=== PATIENT | female | born 1975 | race Caucasian/White ===

== ENCOUNTER 2017-12-02 09:10 | Inpatient (IN) | payer OTHER ==
[~2017-12-02] VITALS: Ht 170.2 cm; Wt 99.8 kg
[2017-12-15] MEDS ORDERED: ATORVASTATIN CA40 MG PO (16:42)
[2017-12-15] MEDS ORDERED: METROPOLOL PO (16:43)
[2017-12-15] MEDS ORDERED: IBRERSARTAN PO (16:44)
[2017-12-20] MEDS ORDERED: IRBESARTAN150 MG PO (11:31)
[2017-12-20] MEDS ORDERED: TOPROL XL25 M1 PO (11:32)
[2017-12-23] MEDS ORDERED: PERCOCET 5-3251 EACH PO (16:52)
[2017-12-23] MEDS ORDERED: OMEPRAZOLE20 M1 PO (16:52)
[2017-12-23] MEDS ORDERED: INTESTINEX680 M1 PO (16:52)
== END 2017-12-23 17:16 | disposition home or self-care (01) | DRG 331 ==
LOC: EDUNIT# 12-15 12:00 → SURG 12-20 06:52 → O/R 12-20 06:52 → SURH 12-20 07:00 → SURG 12-20 13:28
PROVIDERS: Surgery
PROC: 07TC4ZZ Resection of Pelvis Lymphatic, Percutaneous Endoscopic Approach (ICD-10-PCS; 2017-12-20)
PROC: 0DTF4ZZ Resection of Right Large Intestine, Percutaneous Endoscopic Approach (ICD-10-PCS; principal; 2017-12-20 07:00)
DX: C18.3 Malignant neoplasm of hepatic flexure (principal); R59.0 Localized enlarged lymph nodes; E66.01 Morbid (severe) obesity due to excess calories

== ENCOUNTER 2017-12-10 08:35 | Outpatient (CLI) | payer OTHER | END 2017-12-10 08:54 | disposition home or self-care (01) | LOC: LAB 08:35 | DX: C18.2 Malignant neoplasm of ascending colon (principal); R59.0 Localized enlarged lymph nodes ==

== ENCOUNTER 2017-12-19 06:34 | Day surgery (SDC) | payer OTHER ==
[~2017-12-19 06:34] MED LIST: ATORVASTATIN CA40 MG PO; IBRERSARTAN PO; METROPOLOL PO
[2017-12-20] MEDS ORDERED: IRBESARTAN150 MG PO (11:31)
[2017-12-20] MEDS ORDERED: TOPROL XL25 M1 PO (11:32)
== END 2017-12-19 11:40 | disposition home or self-care (01) ==
LOC: AMB-ENDOS 06:34
DX: C18.3 Malignant neoplasm of hepatic flexure (principal)

== ENCOUNTER → 2018-01-20 | Day surgery (SDC) | payer OTHER ==
[~2018-01-20] MED LIST changes: +INTESTINEX680 M1 PO; +IRBESARTAN150 MG PO; +OMEPRAZOLE20 M1 PO; +PERCOCET 5-3251 EACH PO; +TOPROL XL25 M1 PO
== END | disposition home or self-care (01) ==
LOC: ADM 01-18 11:45 → CIR.AMB 05:35
DX: C18.3 Malignant neoplasm of hepatic flexure (principal); E66.01 Morbid (severe) obesity due to excess calories
CPT/HCPCS: 36561; C1751

== ENCOUNTER 2018-12-18 06:37 | Day surgery (SDC) | payer OTHER | END 2018-12-18 13:10 | disposition home or self-care (01) | LOC: AMB-ENDOS 06:37 | DX: K64.0 First degree hemorrhoids (principal) ==

== ENCOUNTER 2019-07-30 10:30 | Inpatient (IN) | payer OTHER ==
[~2019-07-30] VITALS: Ht 165.1 cm; Wt 113.4 kg
[2019-07-30] MEDS ORDERED: CANDESARTAN-HC1 EACH PO (13:59)
[2019-07-30] MEDS ORDERED: ZANTAC PO (14:00)
[2019-07-30] MEDS ORDERED: BISOPROLOL PO (14:07)
[2019-08-02] MEDS ORDERED: BISOPROLOL FUMA10 MG PO (13:09)
[2019-08-02] MEDS ORDERED: RANITIDINE HCL300 MG PO (13:10)
== END 2019-08-04 16:52 | disposition home or self-care (01) | DRG 743 ==
LOC: O/R 08-02 06:00 → OB/GYN 08-02 06:00 → O/R 08-02 10:30 → SURH 08-02 18:10 → OB/GYN 08-02 18:25
PROVIDERS: ADMIT Obstetrics & Gynecology Gynecologic Oncology; ATTEND Obstetrics & Gynecology Gynecologic Oncology
PROC: 0UB94ZZ Excision of Uterus, Percutaneous Endoscopic Approach (ICD-10-PCS; principal; 2019-08-02 19:15)
DX: D25.9 Leiomyoma of uterus, unspecified (principal); E66.01 Morbid (severe) obesity due to excess calories

== ENCOUNTER 2020-06-06 07:15 | Day surgery (SDC) | payer OTHER ==
[~2020-06-06 07:15] MED LIST changes: +BISOPROLOL FUMA10 MG PO; +BISOPROLOL PO; +CANDESARTAN-HC1 EACH PO; +RANITIDINE HCL300 MG PO; +ZANTAC PO
[2020-06-06] MEDS ORDERED: PERCOCET 5-3251 EACH PO (11:00)
== END 2020-06-06 15:10 | disposition home or self-care (01) ==
LOC: CIR.AMB 07:15
PROVIDERS: ATTEND Surgery
DX: C18.3 Malignant neoplasm of hepatic flexure (principal); Z20.822 Contact with and (suspected) exposure to COVID-19

== ENCOUNTER 2020-06-30 09:07 | Day surgery (SDC) | payer OTHER | END 2020-06-30 14:15 | disposition home or self-care (01) | LOC: AMB-ENDOS 09:07 | PROVIDERS: ATTEND Surgery | DX: K62.89 Other specified diseases of anus and rectum (principal); K64.0 First degree hemorrhoids; Z20.822 Contact with and (suspected) exposure to COVID-19 ==